=== PATIENT | male | born 1975 | race Hispanic/Latino ===

== ENCOUNTER 2017-01-15 15:00 | Emergency (ER) | payer SELFPAY ==
--- NOTE | 2017-01-15 16:09 | RAD ---
PORTABLE AP CHEST: Date: 01-15-17 History: Fever, chills, cough, and sore throat since Sunday. Comparison: None available. FINDINGS: Cardiac silhouette and pulmonary vasculature are within normal limits. Linear densities seen in the l eft midlung zone which may be related to either minimal atelectasis or scarring. Lungs are otherwise clear. Osseous structures are intact. IMPRESSION: 1. No acute cardiopulmonary process. 2. Minimal scarring versus atelectasis in the left midlung zone. POS: [facility]
== END 2017-01-15 18:12 | disposition home or self-care (01) ==
LOC: ERS 15:00
DX: J06.9 Acute upper respiratory infection, unspecified (principal); E78.5 Hyperlipidemia, unspecified; I10 Essential (primary) hypertension; F17.210 Nicotine dependence, cigarettes, uncomplicated
CPT/HCPCS: 71010; 99406